=== PATIENT | female | born 1995 | race Caucasian/White ===

== ENCOUNTER 2021-03-18 06:19 | Emergency (ER) | payer OTHER ==
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
== END 2021-03-18 07:20 | disposition left against medical advice (07) ==
LOC: EC 06:19
DX: S00.12XA Contusion of left eyelid and periocular area, initial encounter (principal); F17.200 Nicotine dependence, unspecified, uncomplicated; W10.9XXA Fall (on) (from) unspecified stairs and steps, initial encounter
CPT/HCPCS: 70450; 70480; 72125; 99284

== ENCOUNTER 2022-07-17 16:30 | Emergency (ER) | payer OTHER ==
[2022-07-17] MEDS ORDERED: LIDOCAINE 5% PATCH TOPICAL STA (17:15)
[2022-07-17] MEDS ORDERED: Acetaminophen-Codeine 300-30mg TAB PO STA (17:16)
[2022-07-17] MEDS ORDERED: HYDROcodone/APAP 5-325MG 1 EACH TAB PO STA (17:17)
--- NOTE | 2022-07-17 17:19 | ED ---
Back Pain HPI - General Chief Complaint: Back Pain/Injury Stated Complaint: BACK INJURY-FALL Time Seen by Provider: 07/17/22 16:53 Source: patient Limitations: no limitations - History of Present Illness Initial Comments: Patient is a 27-year-old female who presents to the emergency department for back pain.Patient slipped and fell in the bathroom on Thursday. She did not hit her head or lose consciousness. Patient did hit the left side of her middle back on the countertop during the fall. States her pain was tolerable until yesterday when she twisted her back the wrong way and heard a pop with increased pain. Pain worse with twisting of her back. She went to [facility] and apparently had normal x-rays. She was discharged with Motrin and lidocaine patches. She was unable to brick picker her lidocaine patches due to his primary insurance states the Motrin is barely helping. She denies any pain, numbness, tingling in the legs. Denies saddle anesthesia, leg weakness. Denies burning with urination, blood in the urine, abdominal pain, nausea, vomiting. No chest pain or shortness of breath. - Related Data Allergies Allergy/AdvReac Type Severity Reaction Status Date / Time No Known Allergies Allergy Verified 07/17/22 16:46 Review of Systems ROS Statement: Those systems with pertinent positive or pertinent negative responses have been documented in the HPI. ROS Other: All systems not noted in ROS Statement are negative. Past Medical History Past Medical History: No Reported History History of Any Multi-Drug Resistant Organisms: None Reported Past Surgical History: No Surgical Hx Reported Past Psychological History: Anxiety, Depression Smoking Status: Current every day smoker Past Alcohol Use History: Occasional Past Drug Use History: None Reported General Exam Limitations: no limitations General appearance: alert, in no apparent distress Head exam: Present: atraumatic, normocephalic, normal inspection Eye exam: Present: normal appearance, PERRL, EOMI. Absent: scleral icterus, conjunctival injection, periorbital swelling Respiratory exam: Present: normal lung sounds bilaterally. Absent: respiratory distress, wheezes, rales, rhonchi, stridor Cardiovascular Exam: Present: regular rate, normal rhythm, normal heart sounds. Absent: systolic murmur, diastolic murmur, rubs, gallop, clicks GI/Abdominal exam: Present: soft, normal bowel sounds. Absent: distended, tenderness, guarding, rebound, rigid Back exam: Present: normal inspection, full ROM, paraspinal tenderness (left thoracic). Absent: CVA tenderness (R), CVA tenderness (L), vertebral tenderness Neurological exam: Present: alert, oriented X3, CN II-XII intact Psychiatric exam: Present: normal affect, normal mood Skin exam: Present: warm, dry, intact, normal color. Absent: rash Course Vital Signs 07/17/22 07/17/22 16:46 17:59 Temperature 98.7 F 98.2 F Pulse Rate 99 82 Respiratory 18 16 Rate Blood Pressure 135/89 132/76 O2 Sat by Pulse 99 99 Oximetry Medical Decision Making - Medical Decision Making Was pt. sent in by a medical professional or institution (, PA, MAINTENANCE TEAM LEADER, urgent care, hospital, or longterm...) When possible be specific @ -No Did you speak to anyone other than the patient for history (EMS, parent, family, police, friend...)? What history was obtained from this source @ -No Did you review nursing and triage notes (agree or disagree)? Why? @ -I reviewed and agree with nursing and triage notes Were old charts reviewed (outside hosp., previous admission, EMS record, old EKG, old radiological studies, urgent care reports/EKG's, longterm records)? Report findings @ -No old charts were reviewed Differential Diagnosis (chest pain, altered mental status, abdominal pain women, abdominal pain men, vaginal bleeding, weakness, fever, dyspnea, syncope, headache, dizziness, GI bleed, back pain, seizure, CVA, palpatations, mental health)? @ Muscle strain, contusion, soft tissue injury, fracture, cauda equina. This list is not meant to be all-inclusive EKG interpreted by me (3pts min.). @ -As above X-rays interpreted by me (1pt min.). @ -None done CT interpreted by me (1pt min.). @ -None done U/S interpreted by me (1pt. min.). @ -None done What testing was considered but not performed or refused? (CT, X-rays, U/S, labs)? Why? @ -No What meds were considered but not given or refused? Why? @ -None Did you discuss the management of the patient with other professionals (professionals i.e. , PA, MAINTENANCE TEAM LEADER, lab, RT, psych nurse, social work instructor, lens examiner, teacher, commissioned security officer, geriatric case manager)? Give summary @ -No Was smoking cessation discussed for >3mins.? @ -No Was critical care preformed (if so, how long)? @ -No Were there social determinants of health that impacted care today? How? (Homelessness, low income, unemployed, alcoholism, drug addiction, transportation, low edu. Level, literacy, decrease access to med. care, senior living, rehab)? @ -No Was there de-escalation of care discussed even if they declined (Discuss DNR or withdrawal of care, Hospice)? DNR status @ -No What co-morbidities impacted this encounter? (DM, HTN, Smoking, COPD, CAD, Cancer, CVA, ARF, Chemo, Hep., AIDS, mental health diagnosis, sleep apnea, morbid obesity)? @ -None Was patient admitted / discharged? Hospital course, mention meds given and route, prescriptions, significant lab abnormalities, going to OR and other pertinent info. @ -Patient presenting with back pain. Patient has mild tenderness of the left thoracic paravertebral vertebral region. There is no midline tenderness. Clinical presentation consistent with musculoskeletal injury. No neurological deficit or weakness. No symptoms or signs of cauda equina. We discussed symptomatic management at home.. Patient will be discharged with pain control and import specialist referral. Undiagnosed new problem with uncertain prognosis? @ -No Drug Therapy requiring intensive monitoring for toxicity (Heparin, Nitro, Insulin, Cardizem)? @ -No Were any procedures done? @ -No Diagnosis/symptom? @ -back stain Acute, or Chronic, or Acute on Chronic? @ -acute Uncomplicated (without systemic symptoms) or Complicated (systemic symptoms)? @ -uncomplicated Side effects of treatment? @ -[No] Exacerbation, Progression, or Severe Exacerbation? @ -[No] Poses a threat to life or bodily function? How? (Chest pain, [place], [place], pneumonia, PE, COPD, DKA, ARF, appy, cholecystitis, CVA, Diverticulitis, Homicidal, Suicidal, threat to staff... and all critical care pts) @ -[No] Dr. Cohen is my attending Disposition Clinical Impression: Back strain Disposition: HOME SELF-CARE Condition: Good Instructions (If sedation given, give patient instructions): Acute Low Back Pain (ED) Additional Instructions: Take medication as directed. Take Tylenol and save Tylenol 3 for severe pain. Do not take Tylenol 3 and Tylenol together. Apply warm compress to the injury. Follow-up with import specialist in 1-2 days. Return to the emergency department if you experience new, concerning, or worsening symptoms. Is patient prescribed a controlled substance at d/c from ED?: No Referrals: None,Stated [Primary Care Provider] - 1-2 days Maximo Aceves MD [STAFF PHYSICIAN] - 1-2 days
[2022-07-17] MEDS ORDERED: ACET/COD 300 MG/30 MG STARTER PACK 6 TAB BTL PO STA (17:28)
[2022-07-17 18:02] VITALS: BP 132/76; PULSE 82; RESP 16; TEMP 98.2
== END 2022-07-17 18:02 | disposition home or self-care (01) ==
LOC: EC 16:30
DX: S39.012A Strain of muscle, fascia and tendon of lower back, initial encounter (principal); F17.200 Nicotine dependence, unspecified, uncomplicated; Z86.59 Personal history of other mental and behavioral disorders; W01.0XXA Fall on same level from slipping, tripping and stumbling without subsequent striking against object, initial encounter; Y92.002 Bathroom of unspecified non-institutional (private) residence as the place of occurrence of the external cause
CPT/HCPCS: 99283

== ENCOUNTER 2023-01-19 07:35 | Observation (INO) | payer OTHER ==
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
--- NOTE | 2023-01-19 08:46 | XR ---
EXAMINATION TYPE: XR ribs LT w pa chest xray DATE OF EXAM: 01/19/2023 COMPARISON: NONE HISTORY: Pain TECHNIQUE: Frontal view of the chest and 2 views of the left ribs are submitted FINDINGS: Lung is clear. 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 There is a deformity of the left fifth, sixth and seventh ribs anterolaterally compatible with mildly displaced fractures. Small left apical pneumothorax measuring approximately 10-15%. IMPRESSION: 1. Small left apical pneumothorax measuring 10-15%. 2. Mildly displaced fractures anterolateral left fifth, sixth and seventh ribs.
[2023-01-19 09:12] LABS: Basophils % (A) 1 %; Eosinophils # (A) 0.1 k/uL (0-0.7); Eosinophils % (A) 2 %; HCT 37.9 % (34.0-46.0); HGB 12.5 gm/dL (11.4-16.0); Lymphocytes # (A) 1.5 k/uL (1.0-4.8); Lymphocytes % (A) 28 %; MCH 32.8 pg (25.0-35.0); MCHC 33.1 g/dL (31.0-37.0); Mean Platelet Volume 7.3; Monocytes # (A) 0.5 k/uL (0-1.0); Monocytes % (A) 9 %; Neutrophils # (A) 3.1 k/uL (1.3-7.7); Neutrophils % (A) 58 %; Platelet Count 311 k/uL (150-450); RBC 3.82 m/uL (3.80-5.40); RDW 12.9 % (11.5-15.5); WBC 5.3 k/uL (3.8-10.6)
[2023-01-19 09:23] LABS: ALT 25 U/L (4-34); AST 25 U/L (14-36); African American GFR (CKD) >90 (>60 ml/min/1.73 sqM); Alkaline Phosphatase 104 U/L (38-126); Anion Gap 7 mmol/L; Blood Urea Nitrogen 14 mg/dL (7-17); Calcium 9.4 mg/dL (8.4-10.2); Carbon Dioxide 30 mmol/L (22-30); Chloride 104 mmol/L (98-107); Glucose 74 mg/dL (74-99); Non-African American GFR(CKD) >90 (>60 ml/min/1.73 sqM); Potassium 3.9 mmol/L (3.5-5.1); Sodium 141 mmol/L (137-145); Total Bilirubin 0.7 mg/dL (0.2-1.3)
[2023-01-19 09:34] LABS: INR 0.9 (<1.2); Partial Thromboplastin Time 22.2 sec (22.0-30.0); Prothrombin Time 10.2 sec (10.0-12.5)
[2023-01-19] MEDS ORDERED: NALOXONE 0.4 MG/ML 1 ML VIAL IV PRN (09:41)
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
--- NOTE | 2023-01-19 12:11 | XR ---
EXAM TYPE: LUMBAR SPINE X RAY SERIES COMPARISON: NONE HISTORY: Pain TECHNIQUE: 4 views are submitted. FINDINGS: Alignment is anatomic. The pedicles are intact. The transverse processes are intact. There is no s pondylolisthesis. Vertebral body height and disc interspace maintained. IMPRESSION: 1. No acute process.
[2023-01-19] MEDS: KETOROLAC 15 MG/ML 1 ML VIAL IVP PRN ×2 (12:24→18:30)
[2023-01-19] MEDS: ACETAMINOPHEN TAB 325 MG TAB PO PRN ×2 (15:08→20:50)
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
[2023-01-19] MEDS: FAMOTIDINE 20 MG TAB PO SCH (20:47)
[2023-01-19] MEDS: HEPARIN SODIUM,PORCINE 5,000 UNIT/ML 1 ML VIAL SQ SCH (20:50)
[2023-01-20] MEDS: KETOROLAC 15 MG/ML 1 ML VIAL IVP PRN ×2 (00:49→08:39)
[2023-01-20] MEDS: FAMOTIDINE 20 MG TAB PO SCH (08:42)
[2023-01-20] MEDS: HEPARIN SODIUM,PORCINE 5,000 UNIT/ML 1 ML VIAL SQ SCH (08:42)
--- NOTE | 2023-01-20 08:54 | XR ---
EXAMINATION TYPE: XR chest 2V DATE OF EXAM: 01/20/2023 COMPARISON: 01/19/2023 TECHNIQUE: PA and lateral views submitted. HISTORY: Pneumothorax FINDINGS: Left lower lobe subsegmental consolidation now seen. There is a stable approximate 10-15% left apical pneumothorax. Previously noted rib fractures seen. Right lung clear. Heart size normal. No deviation of the mediastinum. IMPRESSION: 1. Stable approximately 15% left sided pneumothorax. 2. New left lower lobe atelectasis or infiltrate.
[2023-01-20] MEDS: ACETAMINOPHEN TAB 325 MG TAB PO PRN (11:06)
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
[2023-01-20 13:09] VITALS: BP 137/90; PULSE 66; RESP 16; TEMP 97.7
== END 2023-01-20 13:19 | disposition home or self-care (01) ==
LOC: EC 07:35 → INTOOBSV 09:41 → 3SCARD 09:41 → UNDODISIN 01-20 13:19
PROVIDERS: ADMIT Surgery; ATTEND Surgery
DX: S27.0XXA Traumatic pneumothorax, initial encounter (principal); S22.42XA Multiple fractures of ribs, left side, initial encounter for closed fracture; Y04.2XXA Assault by strike against or bumped into by another person, initial encounter; M54.50 Low back pain, unspecified; F41.9 Anxiety disorder, unspecified; F32.A Depression, unspecified; F43.10 Post-traumatic stress disorder, unspecified; F10.90 Alcohol use, unspecified, uncomplicated; F17.210 Nicotine dependence, cigarettes, uncomplicated
CPT/HCPCS: 96376 ×2; 96372; 96374; 99285; 36415; 80053; 85025; 85610; 85730; 71101; 72100; 71046; G0378 ×2; J1644; J1885 ×2

== ENCOUNTER 2023-01-21 06:48 | Emergency (ER) | payer OTHER ==
[2023-01-21 07:00] VITALS: TEMP 97
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
[2023-01-21 08:37] VITALS: BP 124/75; PULSE 84; RESP 16
[2023-01-21 08:46] LABS: Amphetamine Screen,Urine Not Detected (NotDetected); Barbiturate Screen,Urine Not Detected (NotDetected); Benzodiazepines Screen,Urine Not Detected (NotDetected); Cocaine Screen,Urine Detected (NotDetected); Methadone Screen, Urine Not Detected (NotDetected); Opiate Screen,Urine Not Detected (NotDetected); Oxycodone Screen, Urine Not Detected (NotDetected); Phencyclidine Screen,Urine Not Detected (NotDetected); Tricyclic Antidepressant,Urine Not Detected (NotDetected); Urn Cannabinoid Scrn Detected (NotDetected)
[2023-01-21] MEDS ORDERED: ONDANSETRON 4 MG ODT STARTER PACK 2 TAB BTL PO STA (09:17)
== END 2023-01-21 09:21 | disposition home or self-care (01) ==
LOC: EC 06:48
DX: S22.42XA Multiple fractures of ribs, left side, initial encounter for closed fracture (principal); S27.0XXA Traumatic pneumothorax, initial encounter; T40.601A Poisoning by unspecified narcotics, accidental (unintentional), initial encounter; R00.0 Tachycardia, unspecified; F10.129 Alcohol abuse with intoxication, unspecified; F12.20 Cannabis dependence, uncomplicated; F14.10 Cocaine abuse, uncomplicated; F17.200 Nicotine dependence, unspecified, uncomplicated; Z86.59 Personal history of other mental and behavioral disorders; Y04.8XXA Assault by other bodily force, initial encounter; Y90.7 Blood alcohol level of 200-239 mg/100 ml
CPT/HCPCS: 99285; 36415; 93005; 81025; 80306; 71045; G0480; S0119; 80320

== ENCOUNTER 2023-05-22 21:52 | Emergency (ER) | payer OTHER ==
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
[2023-05-22 22:24] LABS: Basophils # (A) 0.1 k/uL (0-0.2); Basophils % (A) 1 %; Eosinophils # (A) 0.2 k/uL (0-0.7); Eosinophils % (A) 1 %; HCT 38.8 % (34.0-46.0); HGB 12.9 gm/dL (11.4-16.0); Lymphocytes # (A) 3.5 k/uL (1.0-4.8); Lymphocytes % (A) 31 %; MCH 32.6 pg (25.0-35.0); MCHC 33.3 g/dL (31.0-37.0); MCV 97.9 fL (80.0-100.0); Mean Platelet Volume 6.9; Monocytes # (A) 0.4 k/uL (0-1.0); Monocytes % (A) 3 %; Neutrophils # (A) 6.9 k/uL (1.3-7.7); Neutrophils % (A) 61 %; Platelet Count 325 k/uL (150-450); RBC 3.97 m/uL (3.80-5.40); RDW 12.1 % (11.5-15.5); WBC 11.4 k/uL (3.8-10.6)
[2023-05-22 22:42] LABS: INR 0.9 (<1.2); Prothrombin Time 10.1 sec (10.0-12.5)
[2023-05-22 22:43] LABS: ALT 13 U/L (4-34); AST 26 U/L (14-36); African American GFR (CKD) >90 (>60 ml/min/1.73 sqM); Albumin 4.8 g/dL (3.5-5.0); Alkaline Phosphatase 178 U/L (38-126); Anion Gap 11 mmol/L; Blood Urea Nitrogen 15 mg/dL (7-17); Calcium 9.3 mg/dL (8.4-10.2); Carbon Dioxide 24 mmol/L (22-30); Chloride 108 mmol/L (98-107); Glucose 87 mg/dL (74-99); Non-African American GFR(CKD) >90 (>60 ml/min/1.73 sqM); Potassium 3.6 mmol/L (3.5-5.1); Sodium 143 mmol/L (137-145); Total Bilirubin 0.7 mg/dL (0.2-1.3); Total Protein 7.8 g/dL (6.3-8.2)
[2023-05-22 22:46] VITALS: BP 142/96; PULSE 102; RESP 20
[2023-05-22 22:47] LABS: Amphetamine Screen,Urine Not Detected (NotDetected); Barbiturate Screen,Urine Not Detected (NotDetected); Benzodiazepines Screen,Urine Not Detected (NotDetected); Cocaine Screen,Urine Not Detected (NotDetected); Methadone Screen, Urine Not Detected (NotDetected); Opiate Screen,Urine Not Detected (NotDetected); Oxycodone Screen, Urine Not Detected (NotDetected); Phencyclidine Screen,Urine Not Detected (NotDetected); Tricyclic Antidepressant,Urine Not Detected (NotDetected); Urn Cannabinoid Scrn Detected (NotDetected)
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
[2023-05-22 23:17] LABS: Alcohol 298 mg/dL
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
[2023-05-22] MEDS: DIPH,PERTUS(ACELL)TETVAC-LF 0.5 ML VIAL IM ONE (23:46)
[2023-05-22] MEDS: LIDOCAINE 1% INJ 10MG/ML (20 ML MDV) SQ ONE (23:48)
== END 2023-05-23 01:19 | disposition home or self-care (01) ==
LOC: EC 21:52
DX: S01.01XA Laceration without foreign body of scalp, initial encounter (principal); S06.0XAA Concussion with loss of consciousness status unknown, initial encounter; F10.129 Alcohol abuse with intoxication, unspecified; F12.90 Cannabis use, unspecified, uncomplicated; F17.200 Nicotine dependence, unspecified, uncomplicated; Z86.59 Personal history of other mental and behavioral disorders; Z23 Encounter for immunization; V89.2XXA Person injured in unspecified motor-vehicle accident, traffic, initial encounter; Y90.8 Blood alcohol level of 240 mg/100 ml or more; Y92.410 Unspecified street and highway as the place of occurrence of the external cause
CPT/HCPCS: 36415; 86900; 86901; 80053; 84484; 85025; 85610; 85730; 86850; 81025; 80306; 80320; 72170; 71045; 72125; 70450; 71260; 74177; 90715; 99285; 90471; 12002; Q9967

== ENCOUNTER 2023-10-01 20:37 | Emergency (ER) | payer OTHER ==
[2023-10-01 20:40] VITALS: TEMP 97.9
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
[2023-10-01] MEDS: IBUPROFEN 600 MG TAB PO STA (22:19)
[2023-10-01 22:27] VITALS: BP 138/91; PULSE 85; RESP 18
== END 2023-10-01 22:27 | disposition home or self-care (01) ==
LOC: EC 20:37
DX: S00.83XA Contusion of other part of head, initial encounter (principal); F17.200 Nicotine dependence, unspecified, uncomplicated; F12.90 Cannabis use, unspecified, uncomplicated; Y09 Assault by unspecified means
CPT/HCPCS: 70110; 99283

== ENCOUNTER 2024-02-19 08:41 | Emergency (ER) | payer OTHER ==
[2024-02-19 08:56] VITALS: RESP 18
--- NOTE | 2024-02-19 09:13 | ED ---
General Adult HPI - General Chief complaint: Vaginal Bleeding Stated complaint: Vaginal bleeding, Time Seen by Provider: 02/19/24 09:00 Source: patient, RN notes reviewed Mode of arrival: ambulatory Limitations: no limitations - History of Present Illness Initial comments: Patient is a 29-year-old female present to the emergency department with concerns for vaginal bleeding. Onset of symptoms was 2 days ago. Patient has had only mild spotting. Patient has had some cramping, at worst has been similar to menses. Patient had positive home test done a week ago. Last menstrual cycle ended 01/06. Currently patient is symptom-free. No fever. No nausea or vomiting. Patient denies any significant vaginal discharge. Patient is G2, P1. - Related Data Previous Rx's Medication Instructions Recorded Ibuprofen [Motrin] 600 mg PO Q8HR PRN #24 tab 01/19/23 Acetaminophen Tab [Tylenol Tab] 650 mg PO Q4H PRN #30 tablet 01/20/23 Ketorolac [Toradol] 10 mg PO Q8HR #15 tab 10/01/23 Allergies Allergy/AdvReac Type Severity Reaction Status Date / Time No Known Allergies Allergy Verified 02/19/24 08:53 Review of Systems ROS Statement: Those systems with pertinent positive or pertinent negative responses have been documented in the HPI. ROS Other: All systems not noted in ROS Statement are negative. Constitutional: Denies: fever Eyes: Denies: eye pain ENT: Denies: throat pain Respiratory: Denies: cough Cardiovascular: Denies: chest pain Gastrointestinal: Reports: as per HPI Genitourinary: Reports: as per HPI. Denies: urgency, dysuria, frequency, hematuria Musculoskeletal: Denies: back pain Past Medical History Past Medical History: No Reported History History of Any Multi-Drug Resistant Organisms: None Reported Past Surgical History: No Surgical Hx Reported Past Psychological History: Anxiety, Depression, PTSD Smoking Status: Current every day smoker Past Alcohol Use History: Occasional Past Drug Use History: Marijuana - Past Family History Father Family Medical History: Myocardial Infarction ([place]) Additional Family Medical History / Comment(s): Father from a myocardial infarction in his late 30s or early 40s General Exam Limitations: no limitations General appearance: alert, in no apparent distress Head exam: Present: normocephalic Eye exam: Present: normal appearance Neck exam: Present: normal inspection Respiratory exam: Present: normal lung sounds bilaterally Cardiovascular Exam: Present: regular rate, normal rhythm GI/Abdominal exam: Present: soft. Absent: distended, tenderness, guarding, rebound, rigid, pulsatile mass Extremities exam: Present: normal inspection Neurological exam: Present: alert Psychiatric exam: Present: normal affect, normal mood Skin exam: Present: normal color Course Vital Signs 02/19/24 08:53 Temperature 99 F Pulse Rate 97 Respiratory 18 Rate Blood Pressure 117/71 O2 Sat by Pulse 100 Oximetry Medical Decision Making - Medical Decision Making Discussion had with patient regarding pelvic exam however patient refuses Was pt. sent in by a medical professional or institution (, PA, JEWEL HOLE FINISH OPENER, urgent c are, hospital, or alf...) When possible be specific @ -No Did you speak to anyone other than the patient for history (EMS, parent, family, police, friend...)? What history was obtained from this source @ -No Did you review nursing and triage notes (agree or disagree)? Why? @ -I reviewed and agree with nursing and triage notes Were old charts reviewed (outside hosp., previous admission, EMS record, old EKG, old radiological studies, urgent care reports/EKG's, alf records)? Report findings @ -No old charts were reviewed Differential Diagnosis (chest pain, altered mental status, abdominal pain women, abdominal pain men, vaginal bleeding, weakness, fever, dyspnea, syncope, headache, dizziness, GI bleed, back pain, seizure, CVA, palpatations, mental health, musculoskeletal)? @ -Differential Vaginal Bleeding: Spontaneous , threatened , molar , ectopic , bloody show, incompetent cervix, abruptioplacenta, placenta previa, uterine ru pture, dysfunctional uterine bleeding, hemorrhage, uterine fibroids, this is not meant to be an all-inclusive list. EKG interpreted by me (3pts min.). @ -As above X-rays interpreted by me (1pt min.). @ -None done CT interpreted by me (1pt min.). @ -None done U/S interpreted by me (1pt. min.). @ -Pelvic ultrasound shows anechoic cystic structure in the uterus What testing was considered but not performed or refused? (CT, X-rays, U/S, labs)? Why? @ -Repeat hCG will be ordered What meds were considered but not given or refused? Why? @ -None Did you discuss the management of the patient with other professionals (professionals i.e. , PA, JEWEL HOLE FINISH OPENER, lab, RT, psych nurse, public health social worker, immigration lawyer, teacher, dog control officer, caser shoe parts)? Give summary @ -No Was smoking cessation discussed for >3mins.? @ -No Was critical care preformed (if so, how long)? @ -No Were there social determinants of health that impacted care today? How? (Homelessness, low income, unemployed, alcoholism, drug addiction, transportation, low edu. Level, literacy, decrease access to med. care, skilled nursing, rehab)? @ -No Was there de-escalation of care discussed even if they declined (Discuss DNR or withdrawal of care, Hospice)? DNR status @ -No What co-morbidities impacted this encounter? (DM, HTN, Smoking, COPD, CAD, Cancer, CVA, ARF, Chemo, Hep., AIDS, mental health diagnosis, sleep apnea, morbid obesity)? @ -None Was patient admitted / discharged? Hospital course, mention meds given and route, prescriptions, significant lab abnormalities, going to OR and other pertinent info. @ -Patient presents with spotting with concerns for . Ultrasound shows cystic structure inside the uterus. Patient is made aware cannot rule out ectopic and will need to close follow-up with [facility] as well as repeat hCG in 48 hours. Patient does demonstrate understanding. Patient is to return if increased bleeding, pain or worsening symptoms. Patient has Rh- and will need RhoGAM Undiagnosed new problem with uncertain prognosis? @ -No Drug Therapy requiring intensive monitoring for toxicity (Heparin, Nitro, Insulin, Cardizem)? @ -No Were any procedures done? @ -No Diagnosis/symptom? @ -Threatened miscarriage Acute, or Chronic, or Acute on Chronic? @ -Acute Uncomplicated (without systemic symptoms) or Complicated (systemic symptoms)? @ -Default Side effects of treatment? @ -No Exacerbation, Progression, or Severe Exacerbation? @ -No Poses a threat to life or bodily function? How? (Chest pain, [place], [place], pneumonia, PE, COPD, DKA, ARF, appy, cholecystitis, CVA, Diverticulitis, Homicidal, Suicidal, threat to staff... and all critical care pts) @ -No - Lab Data Result diagrams: 02/19/24 09:14 02/19/24 09:14 Lab Results 02/19/24 02/19/24 02/19/24 Range/Units 09:14 09:14 09:14 WBC 10.0 (3.8-10.6) k/uL RBC 3.59 L (3.80-5.40) m/uL Hgb 11.6 (11.4-16.0) gm/dL Hct 35.3 (34.0-46.0) % MCV 98.1 (80.0-100.0) fL MCH 32.2 (25.0-35.0) pg MCHC 32.8 (31.0-37.0) g/dL RDW 11.7 (11.5-15.5) % Plt Count 287 (150-450) k/uL MPV 6.8 Neutrophils % 71 % Lymphocytes % 20 % Monocytes % 5 % Eosinophils % 1 % Basophils % 0 % Neutrophils # 7.1 (1.3-7.7) k/uL Lymphocytes # 2.0 (1.0-4.8) k/uL Monocytes # 0.5 (0-1.0) k/uL Eosinophils # 0.1 (0-0.7) k/uL Basophils # 0.0 (0-0.2) k/uL PT 10.0 (10.0-12.5) sec INR 0.9 (<1.2) APTT 24.0 (22.0-30.0) sec Sodium 135 L (137-145) mmol/L Potassium 4.2 (3.5-5.1) mmol/L Chloride 102 (98-107) mmol/L Carbon Dioxide 28 (22-30) mmol/L Anion Gap 5 mmol/L BUN 14 (7-17) mg/dL Creatinine 0.79 (0.52-1.04) mg/dL Est GFR (CKD-EPI)AfAm >90 (>60 ml/min/1.73 sqM) Est GFR (CKD-EPI)NonAf >90 (>60 ml/min/1.73 sqM) Glucose 97 (74-99) mg/dL Calcium 9.7 (8.4-10.2) mg/dL Total Bilirubin 0.4 (0.2-1.3) mg/dL AST 17 (14-36) U/L ALT 13 (4-34) U/L Alkaline Phosphatase 172 H (38-126) U/L Total Protein 7.2 (6.3-8.2) g/dL Albumin 4.4 (3.5-5.0) g/dL HCG, Quant 67082.1 mIU/mL Urine Color Urine Appearance (Clear) Urine pH (5.0-8.0) Ur Specific [place] (1.001-1.035) Urine Protein (Negative) Urine Glucose (UA) (Negative) Urine Ketones (Negative) Urine Blood (Negative) Urine Nitrite (Negative) Urine Bilirubin (Negative) Urine Urobilinogen (<2.0) mg/dL Ur Leukocyte Esterase (Negative) Urine RBC (0-5) /hpf Urine WBC (0-5) /hpf Ur Squamous Epith Cells (0-4) /hpf Urine Bacteria (None) /hpf Urine Mucus (None) /hpf Blood Type Blood Type Recheck Bld Type Recheck Status 02/19/24 02/19/24 Range/Units 09:20 09:40 WBC (3.8-10.6) k/uL RBC (3.80-5.40) m/uL Hgb (11.4-16.0) gm/dL Hct (34.0-46.0) % MCV (80.0-100.0) fL MCH (25.0-35.0) pg MCHC (31.0-37.0) g/dL RDW (11.5-15.5) % Plt Count (150-450) k/uL MPV Neutrophils % % Lymphocytes % % Monocytes % % Eosinophils % % Basophils % % Neutrophils # (1.3-7.7) k/uL Lymphocytes # (1.0-4.8) k/uL Monocytes # (0-1.0) k/uL Eosinophils # (0-0.7) k/uL Basophils # (0-0.2) k/uL PT (10.0-12.5) sec INR (<1.2) APTT (22.0-30.0) sec Sodium (137-145) mmol/L Potassium (3.5-5.1) mmol/L Chloride (98-107) mmol/L Carbon Dioxide (22-30) mmol/L Anion Gap mmol/L BUN (7-17) mg/dL Creatinine (0.52-1.04) mg/dL Est GFR (CKD-EPI)AfAm (>60 ml/min/1.73 sqM) Est GFR (CKD-EPI)NonAf (>60 ml/min/1.73 sqM) Glucose (74-99) mg/dL Calcium (8.4-10.2) mg/dL Total Bilirubin (0.2-1.3) mg/dL AST (14-36) U/L ALT (4-34) U/L Alkaline Phosphatase (38-126) U/L Total Protein (6.3-8.2) g/dL Albumin (3.5-5.0) g/dL HCG, Quant mIU/mL Urine Color Colorless Urine Appearance Clear (Clear) Urine pH 6.5 (5.0-8.0) Ur Specific [place] 1.020 (1.001-1.035) Urine Protein Negative (Negative) Urine Glucose (UA) Negative (Negative) Urine Ketones Negative (Negative) Urine Blood Negative (Negative) Urine Nitrite Negative (Negative) Urine Bilirubin Negative (Negative) Urine Urobilinogen <2.0 (<2.0) mg/dL Ur Leukocyte Esterase Small H (Negative) Urine RBC 1 (0-5) /hpf Urine WBC 3 (0-5) /hpf Ur Squamous Epith Cells 8 H (0-4) /hpf Urine Bacteria Rare H (None) /hpf Urine Mucus Rare H (None) /hpf Blood Type O Negative Blood Type Recheck O Neg Bld Type Recheck Status No Disposition Clinical Impression: Threatened miscarriage Disposition: HOME SELF-CARE Condition: Stable Instructions (If sedation given, give patient instructions): Threatened Miscarriage (ED) Additional Instructions: Tubal/ectopic has not been completely ruled out. Please do follow-up with [facility] in the next 2 days for recheck. Repeat beta-hCG blood draw in 2 days, prescription provided. Return for increased bleeding, increased pain, passing out, shortness of breath, worsening symptoms or any other concern. Is patient prescribed a controlled substance at d/c from ED?: No Referrals: None,Stated [Primary Care Provider] - 1-2 days Ratna Avilez DO [Doctor of Osteopathic Medicine] - 1-2 days Time of Disposition: 10:53
[2024-02-19 09:39] LABS: Basophils % (A) 0 %; Eosinophils # (A) 0.1 k/uL (0-0.7); Eosinophils % (A) 1 %; HCT 35.3 % (34.0-46.0); HGB 11.6 gm/dL (11.4-16.0); Lymphocytes % (A) 20 %; MCH 32.2 pg (25.0-35.0); MCHC 32.8 g/dL (31.0-37.0); MCV 98.1 fL (80.0-100.0); Mean Platelet Volume 6.8; Monocytes # (A) 0.5 k/uL (0-1.0); Monocytes % (A) 5 %; Neutrophils # (A) 7.1 k/uL (1.3-7.7); Neutrophils % (A) 71 %; Platelet Count 287 k/uL (150-450); RBC 3.59 m/uL (3.80-5.40); RDW 11.7 % (11.5-15.5)
[2024-02-19 09:48] LABS: INR 0.9 (<1.2)
[2024-02-19 09:52] LABS: Appearance,Urine Clear (Clear); Bacteria,Urine Rare /hpf; Bilirubin,Urine Negative (Negative); Blood,Urine Negative (Negative); Color,Urine Colorless; Glucose,Urine (UA) Negative (Negative); Ketones,Urine Negative (Negative); Leukocyte Esterase,Urine Small (Negative); Mucus,Urine Rare /hpf; Nitrite,Urine Negative (Negative); PH, Urine 6.5 (5.0-8.0); Protein,Urine Negative (Negative); RBC,Urine 1 /hpf (0-5); Squamous Epithelial Cell,Urine 8 /hpf (0-4); Urobilinogen,Urine <2.0 mg/dL (<2.0); WBC,Urine 3 /hpf (0-5)
[2024-02-19 09:53] LABS: ALT 13 U/L (4-34); AST 17 U/L (14-36); African American GFR (CKD) >90 (>60 ml/min/1.73 sqM); Albumin 4.4 g/dL (3.5-5.0); Alkaline Phosphatase 172 U/L (38-126); Anion Gap 5 mmol/L; Blood Urea Nitrogen 14 mg/dL (7-17); Calcium 9.7 mg/dL (8.4-10.2); Carbon Dioxide 28 mmol/L (22-30); Chloride 102 mmol/L (98-107); Glucose 97 mg/dL (74-99); Non-African American GFR(CKD) >90 (>60 ml/min/1.73 sqM); Potassium 4.2 mmol/L (3.5-5.1); Sodium 135 mmol/L (137-145); Total Bilirubin 0.4 mg/dL (0.2-1.3); Total Protein 7.2 g/dL (6.3-8.2)
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
[2024-02-19 10:37] LABS: HCG,Quantitative Serum 13791.1 mIU/mL
[2024-02-19] MEDS: Rhogam IMMUNE GLOBULIN 1,500 UNIT/1 ML IM ONE (11:36)
[2024-02-19 11:40] VITALS: BP 115/76; PULSE 91; TEMP 98.7
== END 2024-02-19 11:40 | disposition home or self-care (01) ==
LOC: EC 08:41
DX: O20.0 Threatened abortion (principal); O99.331 Smoking (tobacco) complicating pregnancy, first trimester; F17.200 Nicotine dependence, unspecified, uncomplicated; Z34.01 Encounter for supervision of normal first pregnancy, first trimester
CPT/HCPCS: 99284 ×2; 96372 ×2; 36415; 86900; 86901; 80053; 85025; 85610; 85730; 86850; 81001; 84702; 76801; J2790

== ENCOUNTER 2024-04-17 22:09 | Emergency (ER) | payer OTHER ==
[2024-04-17 22:15] VITALS: RESP 16; TEMP 98.2
--- NOTE | 2024-04-17 22:38 | ED ---
General Adult HPI - General Chief complaint: Nausea/Vomiting/Diarrhea Stated complaint: NVD 15 weeks Time Seen by Provider: 04/17/24 22:16 Source: patient Mode of arrival: ambulatory Limitations: no limitations - History of Present Illness Initial comments: Patient is a 29-year-old female, currently 15 weeks presenting today for dizziness, nausea, vomiting and lower abdominal cramping. Patient states symptoms started suddenly about 2 hours prior to arrival. She has had a few episodes of nonbloody nonbilious emesis. Dizziness is described as lightheadedness and worsened upon standing and position changes. She denies chest pain shortness of breath or cough. Denies fevers or chills. No medications prior to arrival. Denies diarrhea, melena, hematochezia. Endorses intermittent constipation. Denies dysuria, hematuria or urinary frequency. Denies history of kidney stones, no surgical history. Vaginal bleeding, discharge or fluid. - Related Data Previous Rx's Medication Instructions Recorded Ibuprofen [Motrin] 600 mg PO Q8HR PRN #24 tab 01/19/23 Acetaminophen Tab [Tylenol Tab] 650 mg PO Q4H PRN #30 tablet 01/20/23 Ketorolac [Toradol] 10 mg PO Q8HR #15 tab 10/01/23 Allergies Allergy/AdvReac Type Severity Reaction Status Date / Time No Known Allergies Allergy Verified 04/17/24 22:12 Review of Systems ROS Statement: Those systems with pertinent positive or pertinent negative responses have been documented in the HPI. ROS Other: All systems not noted in ROS Statement are negative. Past Medical History Past Medical History: No Reported History History of Any Multi-Drug Resistant Organisms: None Reported Past Surgical History: No Surgical Hx Reported Past Psychological History: Anxiety, Depression, PTSD Smoking Status: Vaper Past Alcohol Use History: None Reported Past Drug Use History: None Reported - Past Family History Father Family Medical History: Myocardial Infarction ([place]) Additional Family Medical History / Comment(s): Father from a myocardial infarction in his late 30s or early 40s General Exam - General Exam Comments Initial Comments: PE: CONSTITUTIONAL: No apparent distress, well appearing SKIN: Warm, dry, no jaundice, hives or petechiae EYES: Pupils are equally round, extraocular movements intact without nystagmus, clear conjunctiva, non-icteric sclera HENT: Normocephalic, atraumatic, moist mucus membranes, oropharynx clear without exudates NECK: , Full range of motion, normal appearance PULMONARY: Clear to auscultation without wheezes, rhonchi, or rales, normal excursion, no accessory muscle use and no stridor CARDIOVASCULAR: Regular rate, rhythm, normal S1 and S2. No appreciated murmurs, rubs or gallops. Strong DP pulses with intact distal perfusion. No lower extremity edema GASTROINTESTINAL: Soft, active bowel sounds throughout, non-tender, non- distended, no palpable masses, no rebound or guarding. No hepatosplenomegaly, - CVA TTP MUSCULOSKELETAL: Extremities have no gross deformity, no edema, redness, or swelling. No calf swelling NEUROLOGIC:_a/o x 3, GCS 15, normal mentation and speech. Moves all extremities x 4 without motor or sensory deficit PSYCHIATRIC:_normal mood and affect, thought process is clear and linear Limitations: no limitations Course Vital Signs 04/17/24 22:12 Temperature 98.2 F Pulse Rate 91 Respiratory 16 Rate Blood Pressure 132/93 O2 Sat by Pulse 98 Oximetry EKG Findings - EKG Comments: EKG Findings:: Sinus rhythm with respiratory variation, rate 65 beats minute RI interval 126 ms QT/QTc 398/4 9 ms, normal axis, no ST elevations or depressions, no delta waves or Brugada pattern Medical Decision Making - Medical Decision Making Was pt. sent in by a medical professional or institution (JAMES Yap, MONEY ROOM TELLER, urgent care, hospital, or snf...) When possible be specific @ -[No] Did you speak to anyone other than the patient for history (EMS, parent, family, police, friend...)? What history was obtained from this source @ -[No] Did you review nursing and triage notes (agree or disagree)? Why? @ -[I reviewed nursing and triage notes] Were old charts reviewed (outside hosp., previous admission, EMS record, old EKG , old radiological studies, urgent care reports/EKG's, snf records)? Report findings @ -[Medical records reviewed] had an ultrasound performed on 02/19/2024 that significant for a small anechoic intrauterine cystic structure without evidence of yolk sac or pole, was thought represent an early gestational sac with positive hCG, ectopic and abnormality of intrauterine were not ruled out based on that alone, a follow-up ultrasound in 7 to 10 days was recommended, there is no follow-up ultrasound in our records. Differential Diagnosis (chest pain, altered mental status, abdominal pain women, abdominal pain men, vaginal bleeding, weakness, fever, dyspnea, syncope, headache, dizziness, GI bleed, back pain, seizure, CVA, palpatations, mental health, musculoskeletal)? Differential diagnosis remains broad however top considerations include ovarian torsion, PID, kidney stone, placenta abruption, ruptured ectopic , UTI, placenta previa, threatened , N/V in , Hyperemsis gravidarum, viral infection, this is not meant to be an all-inclusive list EKG interpreted by me (3pts min.). @ -[As above] X-rays interpreted by me (1pt min.). @ -[None done] CT interpreted by me (1pt min.). @ -[None done] U/S interpreted by me (1pt. min.). @ -[None done] What testing was considered but not performed or refused? (CT, X-rays, U/S, labs)? Why? @ -[None] What meds were considered but not given or refused? Why? @ -[None] Did you discuss the management of the patient with other professionals (professionals i.e. , PA, MONEY ROOM TELLER, lab, RT, psych nurse, social media marketer, layer out plate glass, teacher, chemical instrumentation officer, pillowcase cutter)? Give summary @ -[No] Was smoking cessation discussed for >3mins.? @ -[No] Was critical care preformed (if so, how long)? @ -[No] Were there social determinants of health that impacted care today? How? (Homelessness, low income, unemployed, alcoholism, drug addiction, transportation, low edu. Level, literacy, decrease access to med. care, halfway, rehab)? @ -[No] Was there de-escalation of care discussed even if they declined (Discuss DNR or withdrawal of care, Hospice)? @ -[No] What co-morbidities impacted this encounter? (DM, HTN, Smoking, COPD, CAD, Cancer, CVA, ARF, Chemo, Hep., AIDS, mental health diagnosis, sleep apnea, mor bid obesity)? @ -[None] Was patient admitted / discharged? Hospital course, mention meds given and r oute, prescriptions, significant lab abnormalities, going to OR and other pertinent info. @ -[hospital course] patient is a pleasant seven 29-year-old female presenting today for lower abdominal cramping, lightheadedness nausea and vomiting that started a few hours prior to arrival. Vital signs within acceptable limits on arrival. On my assessment patient is comfortable and well-appearing in no acute distress. Physical exam as noted above. Discussed with patient plan for IV fluids, antinausea medications, Tylenol, OB ultrasound. Patient agreed plan of care. Of note patient had an ultrasound done on 02/19/2024 as noted above, she states she has had a follow-up ultrasound since then that did confirm an intrauterine . On reassessment patient endorsed improvement of symptoms. Ultrasound did not show any acute or emergent process. Undiagnosed new problem with uncertain prognosis? @ -[No] Drug Therapy requiring intensive monitoring for toxicity (Heparin, Nitro, Insulin, Cardizem)? @ -[No] Were any procedures done? @ -[No] Diagnosis/symptom? @ -[default] Acute, or Chronic, or Acute on Chronic? @ -[default] Uncomplicated (without systemic symptoms) or Complicated (systemic symptoms)? @ -[default] Side effects of treatment? @ -[No] Exacerbation, Progression, or Severe Exacerbation? @ -[No] Poses a threat to life or bodily function? How? (Chest pain, [place], PR, pneumonia, PE, COPD, DKA, ARF, appy, cholecystitis, CVA, Diverticulitis, Homicidal, Suicidal, threat to staff... and all critical care pts) @ -[No] - Lab Data Result diagrams: 04/17/24 22:31 04/17/24 22:31 Lab Results 04/17/24 04/17/24 04/17/24 Range/Units 22:31 22:31 22:35 WBC 13.6 H (3.8-10.6) k/uL RBC 3.68 L (3.80-5.40) m/uL Hgb 11.8 (11.4-16.0) gm/dL Hct 34.0 (34.0-46.0) % MCV 92.4 D (80.0-100.0) fL MCH 32.0 (25.0-35.0) pg MCHC 34.6 (31.0-37.0) g/dL RDW 12.8 (11.5-15.5) % Plt Count 344 (150-450) k/uL MPV 6.5 Neutrophils % 76 % Lymphocytes % 16 % Monocytes % 5 % Eosinophils % 1 % Basophils % 0 % Neutrophils # 10.3 H (1.3-7.7) k/uL Lymphocytes # 2.2 (1.0-4.8) k/uL Monocytes # 0.7 (0-1.0) k/uL Eosinophils # 0.1 (0-0.7) k/uL Basophils # 0.1 (0-0.2) k/uL PT 10.2 (10.0-12.5) sec INR 0.9 (<1.2) APTT 22.2 (22.0-30.0) sec Sodium 132 L (137-145) mmol/L Potassium 4.0 (3.5-5.1) mmol/L Chloride 103 (98-107) mmol/L Carbon Dioxide 18 L (22-30) mmol/L Anion Gap 11 mmol/L BUN 12 (7-17) mg/dL Creatinine 0.50 L (0.52-1.04) mg/dL Est GFR (CKD-EPI)AfAm >90 (>60 ml/min/1.73 sqM) Est GFR (CKD-EPI)NonAf >90 (>60 ml/min/1.73 sqM) Glucose 88 (74-99) mg/dL Calcium 9.5 (8.4-10.2) mg/dL Total Bilirubin 1.0 (0.2-1.3) mg/dL AST 16 (14-36) U/L ALT 11 (4-34) U/L Alkaline Phosphatase 84 (38-126) U/L Total Protein 7.0 (6.3-8.2) g/dL Albumin 4.2 (3.5-5.0) g/dL Lipase 59 (23-300) U/L Urine Color Urine Appearance (Clear) Urine pH (5.0-8.0) Ur Specific [place] (1.001-1.035) Urine Protein (Negative) Urine Glucose (UA) (Negative) Urine Ketones (Negative) Urine Blood (Negative) Urine Nitrite (Negative) Urine Bilirubin (Negative) Urine Urobilinogen (<2.0) mg/dL Ur Leukocyte Esterase (Negative) Influenza Type A (PCR) (Not Detectd) Influenza Type B (PCR) (Not Detectd) RSV (PCR) (Not Detectd) SARS-CoV-2 (PCR) (Not Detectd) Blood Type Blood Type Recheck Bld Type Recheck Status Antibody Screen Spec Expiration Date 04/17/24 04/17/24 04/17/24 Range/Units 22:35 22:54 23:04 WBC (3.8-10.6) k/uL RBC (3.80-5.40) m/uL Hgb (11.4-16.0) gm/dL Hct (34.0-46.0) % MCV (80.0-100.0) fL MCH (25.0-35.0) pg MCHC (31.0-37.0) g/dL RDW (11.5-15.5) % Plt Count (150-450) k/uL MPV Neutrophils % % Lymphocytes % % Monocytes % % Eosinophils % % Basophils % % Neutrophils # (1.3-7.7) k/uL Lymphocytes # (1.0-4.8) k/uL Monocytes # (0-1.0) k/uL Eosinophils # (0-0.7) k/uL Basophils # (0-0.2) k/uL PT (10.0-12.5) sec INR (<1.2) APTT (22.0-30.0) sec Sodium (137-145) mmol/L Potassium (3.5-5.1) mmol/L Chloride (98-107) mmol/L Carbon Dioxide (22-30) mmol/L Anion Gap mmol/L BUN (7-17) mg/dL Creatinine (0.52-1.04) mg/dL Est GFR (CKD-EPI)AfAm (>60 ml/min/1.73 sqM) Est GFR (CKD-EPI)NonAf (>60 ml/min/1.73 sqM) Glucose (74-99) mg/dL Calcium (8.4-10.2) mg/dL Total Bilirubin (0.2-1.3) mg/dL AST (14-36) U/L ALT (4-34) U/L Alkaline Phosphatase (38-126) U/L Total Protein (6.3-8.2) g/dL Albumin (3.5-5.0) g/dL Lipase (23-300) U/L Urine Color Light Yellow Urine Appearance Clear (Clear) Urine pH 7.0 (5.0-8.0) Ur Specific [place] 1.022 (1.001-1.035) Urine Protein Trace H (Negative) Urine Glucose (UA) Negative (Negative) Urine Ketones Negative (Negative) Urine Blood Negative (Negative) Urine Nitrite Negative (Negative) Urine Bilirubin Negative (Negative) Urine Urobilinogen <2.0 (<2.0) mg/dL Ur Leukocyte Esterase Negative (Negative) Influenza Type A (PCR) Not Detected (Not Detectd) Influenza Type B (PCR) Not Detected (Not Detectd) RSV (PCR) Not Detected (Not Detectd) SARS-CoV-2 (PCR) Not Detected (Not Detectd) Blood Type O Negative Blood Type Recheck O Neg Bld Type Recheck Status No Antibody Screen POSITIVE Spec Expiration Date 04/20/20242334 Disposition Clinical Impression: Nausea and vomiting during Disposition: HOME SELF-CARE Condition: Stable Instructions (If sedation given, give patient instructions): Acute Nausea and Vomiting (ED) Additional Instructions: Every disease is a spectrum and a small chance still exists that a serious condition could develop, for this reason, please monitor yourself closely for new, changing or worsening symptoms, symptoms that persist beyond 48 hours, failure of your symptoms resolved in 48 hours, severe abdominal pain, vaginal bleeding or discharge, episode of passing out, chest pain or difficulty in breathing fever, inability to tolerate/keep down fluids or your medications, inability to follow up with outpatient providers as instructed and should you ex perience these symptoms or should you have any further concerns for your wellbeing please return to the ED or call 911 immediately. Please drink plenty of fluids and remain on pelvic rest (no sexual intercourse, douching or any other objects inserted into the vagina) until seen by your gynecology teacher. PLEASE call your primary care physician as soon as possible to arrange / discuss plan for followup appointment. Appointment in the next 1-3 days is strongly encouraged if possible. PLEASE let us know here before you leave if there is anything further we can do to be of any assistance. Take care and feel Better! Is patient prescribed a controlled substance at d/c from ED?: No Referrals: None,Stated [Primary Care Provider] - 1-2 days Susan Vigil MD [STAFF PHYSICIAN] - 1-2 days
[2024-04-17] MEDS: diphenhydrAMINE 50 MG/ML 1 ML VIAL IVP STA (22:44)
[2024-04-17] MEDS: ACETAMINOPHEN TAB 500 MG TAB PO STA (22:45)
[2024-04-17] MEDS: ONDANSETRON 4 MG/2 ML VIAL IVP STA (22:47)
[2024-04-17] MEDS: METOCLOPRAMIDE 5 MG/ML 2 ML VIAL IVP STA (22:48)
[2024-04-17] MEDS: FAMOTIDINE 20 MG/2 ML VIAL IV STA (22:49)
[2024-04-17] MEDS: PYRIDOXINE 100 MG/ML 1 ML VIAL IVP STA (22:51)
[2024-04-17 22:52] LABS: Basophils # (A) 0.1 k/uL (0-0.2); Basophils % (A) 0 %; Eosinophils # (A) 0.1 k/uL (0-0.7); Eosinophils % (A) 1 %; HGB 11.8 gm/dL (11.4-16.0); Lymphocytes # (A) 2.2 k/uL (1.0-4.8); Lymphocytes % (A) 16 %; MCHC 34.6 g/dL (31.0-37.0); Mean Platelet Volume 6.5; Monocytes # (A) 0.7 k/uL (0-1.0); Monocytes % (A) 5 %; Neutrophils # (A) 10.3 k/uL (1.3-7.7); Neutrophils % (A) 76 %; Platelet Count 344 k/uL (150-450); RBC 3.68 m/uL (3.80-5.40); RDW 12.8 % (11.5-15.5); WBC 13.6 k/uL (3.8-10.6)
[2024-04-17 22:59] LABS: MCV 92.4 fL (80.0-100.0)
[2024-04-17] MEDS: DEXTROSE 5%-LACTATED RINGERS 1,000 ML IV SCH (23:02)
[2024-04-17 23:13] LABS: INR 0.9 (<1.2); Partial Thromboplastin Time 22.2 sec (22.0-30.0); Prothrombin Time 10.2 sec (10.0-12.5)
[2024-04-17 23:15] LABS: African American GFR (CKD) >90 (>60 ml/min/1.73 sqM); Anion Gap 11 mmol/L; Blood Urea Nitrogen 12 mg/dL (7-17); Carbon Dioxide 18 mmol/L (22-30); Chloride 103 mmol/L (98-107); Glucose 88 mg/dL (74-99); Sodium 132 mmol/L (137-145)
[2024-04-17 23:15] LABS: Appearance,Urine Clear (Clear); Bilirubin,Urine Negative (Negative); Blood,Urine Negative (Negative); Color,Urine Light Yellow; Glucose,Urine (UA) Negative (Negative); Ketones,Urine Negative (Negative); Leukocyte Esterase,Urine Negative (Negative); Nitrite,Urine Negative (Negative); Protein,Urine Trace (Negative); Specific Gravity,Urine 1.022 (1.001-1.035); Urobilinogen,Urine <2.0 mg/dL (<2.0)
[2024-04-17 23:16] LABS: ALT 11 U/L (4-34); AST 16 U/L (14-36); Albumin 4.2 g/dL (3.5-5.0); Alkaline Phosphatase 84 U/L (38-126); Calcium 9.5 mg/dL (8.4-10.2); Lipase 59 U/L (23-300); Non-African American GFR(CKD) >90 (>60 ml/min/1.73 sqM)
[2024-04-17 23:40] LABS: Influenza A Not Detected (Not Detectd); Influenza B Not Detected (Not Detectd); RSV Not Detected (Not Detectd)
--- NOTE | 2024-04-18 01:51 | US ---
EXAM: US Second or Third Trimester , Transabdominal CLINICAL HISTORY: US Reason: N/V/ lightheadedness, low ab. Cramping, 15W TECHNIQUE: Real-time transabdominal obstetrical ultrasound of the maternal pelvis and a second or third trimester with image documentation. COMPARISON: No relevant prior studies available. FINDINGS: Fetus: Heart rate: heart rate 169 bpm. Presentation: There is a single intrauterine fetus in a breech orientation. Placenta: The placenta is posterior fundal and grade 1. No previa or abruption. Amniotic fluid: Unremarkable. Anatomy: Intracranial/face anatomy not seen. Spinal anatomy not seen. Extremities not seen. Four-chamber heart not seen. Umbilical cord not seen. BIOMETRICS Gestational age: The estimated gestational age is 14 weeks 5 days. BISHNU: The estimated date delivery is October 11, 2024. EFW: Estimated weight 97 g 14 g. BPD: Biparietal diameter 2.68 cm consistent with 14 weeks 6 days. HC: Head circumference 10.03 cm consistent with 14 weeks 5 days. AC: Abdominal circumference 8.06 cm consistent with 14 weeks 4 days. FL: Femur length 1.45 cm consistent with 14 weeks 2 days. MATERNAL: Uterus: There is a 2.9 x 2.4 x 2.3 cm fibroid extending off the anterior uterus. Cervix: Cervix measures 3.4 cm and is closed. Free fluid: No free fluid in the pelvis. IMPRESSION: 1. The estimated gestational age is 14 weeks 5 days. 2. The estimated date delivery is October 11, 2024.
[2024-04-18 02:07] VITALS: BP 127/68; PULSE 69
== END 2024-04-18 02:07 | disposition home or self-care (01) ==
LOC: EC 22:09
DX: O21.9 Vomiting of pregnancy, unspecified (principal); O99.332 Smoking (tobacco) complicating pregnancy, second trimester; F17.290 Nicotine dependence, other tobacco product, uncomplicated; Z3A.15 15 weeks gestation of pregnancy
CPT/HCPCS: 36415; 93005; 86900; 86901; 80053; 83690; 85025; 85610; 85730; 86850; 81003; 87636; 76805; 99285; 96374; 96375 ×4; 96361; J1200; J3415; J2765; J2405; J3490; 86870; 86880

== ENCOUNTER 2024-09-29 05:41 | Inpatient (IN) | payer BC, OTHER ==
[2024-09-29] MEDS ORDERED: OXYTOCIN 10 UNIT/ML 1 ML VIAL IM PRN (06:12)
[2024-09-29] MEDS ORDERED: TERBUTALINE 1 MG/ML VIAL SQ PRN (06:12)
[2024-09-29] MEDS ORDERED: TRANEXAMIC 1,000 MG/100ML-NACL 1,000 MG in EMPTY BAG 1 BAG IV PRN (06:12)
[2024-09-29] MEDS ORDERED: METHYLERGONOVINE 0.2 MG/ML 1 ML AMP IM PRN (06:12)
[2024-09-29] MEDS ORDERED: CARBOPROST TROMETHAMINE 250 MCG/ML 1 ML AMP IM PRN (06:12)
[2024-09-29] MEDS ORDERED: LIDOCAINE 0.5% (PF) 5 MG/ML (50 ML SDV) SQ PRN (06:12)
[2024-09-29 06:19] VITALS: RESP 16
[2024-09-29 06:29] LABS: Basophils # (A) 0.03 10*3/uL (0.00-0.10); Basophils % (A) 0.3 %; Eosinophils # (A) 0.03 10*3/uL (0.04-0.35); Eosinophils % (A) 0.3 %; HCT 28.5 % (37.2-46.3); HGB 10.0 g/dL (12.0-15.0); Lymphocytes # (A) 1.52 10*3/uL (0.90-5.00); Lymphocytes % (A) 14.8 %; MCH 33.1 pg (27.0-32.0); MCHC 35.1 g/dL (32.0-37.0); MCV 94.4 fL (80.0-97.0); Monocytes # (A) 0.77 10*3/uL (0.20-1.00); Monocytes % (A) 7.5 %; Neutrophils # (A) 7.87 10*3/uL (1.80-7.70); Neutrophils % (A) 76.7 %; Platelet Count 219 10*3/uL (140-440); RBC 3.02 10*6/uL (4.10-5.20); RDW 14.3 % (11.5-14.5); WBC 10.26 10*3/uL (4.50-10.00)
[2024-09-29] MEDS: LACTATED RINGERS 1,000 ML IV SCH (06:36)
[2024-09-29] MEDS: OXYTOCIN 30 UNITS/500 ML NS 30 UNIT in SALINE 1 500ML.BAG IV SCH (06:37)
[2024-09-29] MEDS ORDERED: BUTORPHANOL 1 MG/ML 1 ML VIAL IV PRN (08:47)
--- NOTE | 2024-09-29 08:51 | P.HPOB ---
History of Present Illness H&P Date: 09/29/24 Chief Complaint: 38+ weeks, IUGR, induction The patient is a 29-year-old 2 para 1-0-0-1 admitted at 38+ weeks as established by last menstrual period and confirmed by 11-week ultrasound. She is admitted for induction of labor secondary to the diagnosis of intrauterine growth restriction. She has had reassuring twice weekly testing since 32 weeks and all signs are reassuring on labor and delivery with a category 1 heart rate tracing. She is also Rh- and received RhoGAM at 28 weeks. She was discovered at her anatomy scan to have an intracardiac mass or structure which was evaluated by maternal- medicine and thought to be of no concern w ith no change in management. She additionally carries a history of HSV for which she has been on prophylaxis since 36 weeks with Valtrex. Group B strep status is negative. Obstetrical history: 2 para 1-0-0-1 with 1 term vaginal delivery without complications. Current statistics are listed in history of present illness. EDC of 10/10/2024 was established by last menstrual period and confirmed by 11-week ultrasound. Laboratory workup demonstrates a blood type of O- with a negative antibody screen. Rubella status is immune. The remainder of the laboratory workup is within normal limits. 1 hour Glucola was normal and group B strep status is negative. Gynecologic history: Unremarkable with no history of any infections to include STDs aside from her history of HSV for which she has had no lesions during the and is currently on prophylaxis. Review of Systems Review of systems is confined to history of present illness. Past Medical History Past Medical History: No Reported History History of Any Multi-Drug Resistant Organisms: None Reported Past Surgical History: No Surgical Hx Reported Past Anesthesia/Blood Transfusion Reactions: No Reported Reaction Past Psychological History: Anxiety, Depression, PTSD Smoking Status: Former smoker, Vaper Past Alcohol Use History: None Reported Past Drug Use History: None Reported - Past Family History Father Family Medical History: Myocardial Infarction ([place]) Additional Family Medical History / Comment(s): Father from a myocardial infarction in his late 30s or early 40s Medications and Allergies Home Medications Medication Instructions Recorded Confirmed Type Vit No.179/Iron/Folic 1 tab PO DAILY 09/29/24 09/29/24 History [ Tablet] valACYclovir HCL [Valtrex] 1 tab PO DAILY 09/29/24 09/29/24 History Allergies Allergy/AdvReac Type Severity Reaction Status Date / Time No Known Allergies Allergy Verified 09/29/24 06:09 Exam Vital Signs Temp Pulse Resp BP Pulse Ox 09/29/24 06:09 97.4 F L 89 16 128/84 99 Intake and Output 09/28/24 09/29/24 09/29/24 22:59 06:59 14:59 Other: Weight 71.668 kg In general, this is a well-developed, well-nourished white female in no acute distress. Her heart has a regular rhythm and rate without murmur. Her lungs clear to auscultation bilaterally in all ke[place]. Her abdomen is gravid, nondistended, has normal active bowel sounds, soft, nontender, and without any palpable masses aside from the uterine fundus. Her extremities are without any cyanosis, clubbing, or edema and are nontender to palpation bilaterally. Digi ashlyn cervical examination demonstrates her cervix to be 2+ centimeters dilated, 60 to 70% effaced, with the vertex and presentation at -2 station. Artificial rupture of membranes is carried out demonstrating clear fluid. Results Result Diagrams: 09/29/24 06:15 Abnormal Lab Results - Last 24 Hours (Table) 09/29/24 Range/Units 06:15 WBC 10.26 H (4.50-10.00) 10*3/uL RBC 3.02 L (4.10-5.20) 10*6/uL Hgb 10.0 L (12.0-15.0) g/dL Hct 28.5 L (37.2-46.3) % MCH 33.1 H (27.0-32.0) pg Neutrophils # 7.87 H (1.80-7.70) 10*3/uL Eosinophils # 0.03 L (0.04-0.35) 10*3/uL Assessment and Plan (1) Intrauterine growth retardation in Current Visit: Yes Status: Acute Code(s): O36.5990 - MATERN CARE FOR OTH OR SUSP POOR FETL GRTH, UNSP TRI, UNSP SNOMED Code(s): 341042503 (2) Term Current Visit: Yes Status: Acute Code(s): Z34.90 - ENCNTR FOR SUPRVSN OF NORMAL , UNSP, UNSP TRIMESTER SNOMED Code(s): 78931261 Plan: The patient has been admitted for Pitocin induction which has been started. Artificial rupture of membranes has been carried out. She will have close maternal and surveillance and expectant management will be practiced. She is a good candidate for either IV or epidural analgesia, chart she may choose.
[2024-09-29] MEDS ORDERED: fentaNYL (PF) 50 MCG/ML 5 ML AMP ONE (09:29)
[2024-09-29] MEDS ORDERED: ROPIVACAINE 5 MG/ML 30 ML VIAL ONE (09:29)
[2024-09-29] MEDS ORDERED: SODIUM CHLORIDE 0.9% 250 ML BAG ONE (09:29)
[2024-09-29] MEDS ORDERED: HYDROCORTISONE 2.5% RECTAL CREAM 30 GM TUBE RECTAL PRN (12:52)
[2024-09-29] MEDS ORDERED: diphenhydrAMINE 25 MG CAP PO PRN (12:52)
[2024-09-29] MEDS ORDERED: LANOLIN CREAM 1 GM TUBE TOPICAL PRN (12:52)
[2024-09-29] MEDS ORDERED: diphenhydrAMINE 50 MG/ML 1 ML VIAL IVP PRN ×2 (12:52)
[2024-09-29] MEDS ORDERED: BENZOCAINE/MENTHOL SPRAY 1 GM/SPRAY AEROSOL TOPICAL PRN (12:52)
[2024-09-29] MEDS ORDERED: SIMETHICONE 80 MG CHEWABLE PO PRN (12:52)
[2024-09-29] MEDS ORDERED: ZOLPIDEM 5 MG TAB PO PRN (12:52)
--- NOTE | 2024-09-29 12:56 | P.PROBDLV ---
Vaginal Delivery Note - . Vaginal Delivery Note: Date of service/delivery: 09/29/2024 The patient is a 29-year-old 2 para 1-0-0-1 admitted at 38-3/7 weeks by good dating parameters. She is admitted for induction of labor with a diagnosis of intrauterine growth restriction. On labor and delivery, all signs are reassuring with a category 1 heart rate tracing. She is additionally Rh- and received RhoGAM at 28 weeks. testing regarding the IUGR has been reassuring twice weekly since 32 weeks. Pitocin augmentation was started first thing this morning and she then underwent artificial rupture of membranes for clear fluid. She made fairly rapid progress and actually had category 2 h eart rate tracing for the last 30 minutes almost certainly secondary to rapid dilation and descent as once she began pushing, the heart tones returned to category 1. She pushed over the course of 2 contractions to a normal spontaneous vaginal delivery of a viable 5 pound 12 ounce baby girl with Apgars of 9 at 1 minute and 9 at 5 minutes delivered in the right occiput anterior position. The placenta was delivered spontaneously, intact, grossly normal with a grossly normal three-vessel cord inserted approximately 3 cm from the margin of the placental disc. There are no significant lacerations the perineum, vagina, or cervix. Estimated blood loss for the case was approximately 50 mL. There were no complications. Both mother and infant are resting comfortably in recovery.
[2024-09-29] MEDS ORDERED: OXYTOCIN 30 UNITS/500 ML NS 30 UNIT in SALINE 1 500ML.BAG IV SCH (13:00)
[2024-09-29] MEDS: SENNOSIDES-DOCUSATE SODIUM 1 EACH TAB PO SCH (21:15)
[2024-09-29] MEDS: Rhogam IMMUNE GLOBULIN 1,500 UNIT/1 ML IM ONE (22:52)
[2024-09-29] MEDS: ACETAMINOPHEN TAB 500 MG TAB PO PRN (23:02)
[2024-09-30 06:32] LABS: Basophils # (A) 0.03 10*3/uL (0.00-0.10); Basophils % (A) 0.3 %; Eosinophils # (A) 0.06 10*3/uL (0.04-0.35); Eosinophils % (A) 0.6 %; HCT 28.5 % (37.2-46.3); HGB 9.4 g/dL (12.0-15.0); Lymphocytes # (A) 1.98 10*3/uL (0.90-5.00); Lymphocytes % (A) 19.2 %; MCH 31.8 pg (27.0-32.0); MCHC 33.0 g/dL (32.0-37.0); MCV 96.3 fL (80.0-97.0); Monocytes # (A) 1.13 10*3/uL (0.20-1.00); Monocytes % (A) 10.9 %; Neutrophils # (A) 7.09 10*3/uL (1.80-7.70); Neutrophils % (A) 68.7 %; Platelet Count 196 10*3/uL (140-440); RBC 2.96 10*6/uL (4.10-5.20); RDW 14.4 % (11.5-14.5); WBC 10.32 10*3/uL (4.50-10.00)
[2024-09-30] MEDS: IBUPROFEN 800 MG TAB PO PRN (08:26)
--- NOTE | 2024-09-30 08:40 | P.DS ---
Providers Date of admission: 09/29/24 05:41 Expected date of discharge: 09/30/24 Attending physician: Arnoldo Ring Primary care physician: Stated None Hospital Course: 29 year old now PPD#1 s/p . The patient is doing well this morning and had no acute events overnight. She has no complaints this morning. She reports minimal lochia, passing flatus, voiding without difficulty, ambulating, and eating/drinking without nausea or vomiting. doing well at bedside, nursing well. She denies chest pain, shortness of breathing, fevers, or chills overnight. She denies pain or swelling in the legs. restrictions are reviewed with the patient including pelvic rest for 6 weeks. The patient is encouraged to call the office if she experiences any heavy bleeding, foul- smelling discharge, breast complaints, or any if she has any other concerns. She will follow up in the office with Dr. Ring in 6 weeks for exam. All questions are answered. Patient Condition at Discharge: Good Plan - Discharge Summary New Discharge Prescriptions: New Acetaminophen Tab [Tylenol] 650 mg PO Q6H PRN #30 tab PRN Reason: Mild Pain (Scale 1 To 3) Docusate [Colace] 100 mg PO BID PRN #60 capsule PRN Reason: Constipation Ibuprofen [Motrin] 600 mg PO Q6HR PRN #30 tab PRN Reason: Mild Pain (Scale 1 To 3) No Action Vit No.179/Iron/Folic [ Tablet] 1 tab PO DAILY valACYclovir HCL [Valtrex] 1 tab PO DAILY Discharge Medication List Vit No.179/Iron/Folic [ Tablet] 1 tab PO DAILY 09/29/24 [History] valACYclovir HCL [Valtrex] 1 tab PO DAILY 09/29/24 [History] Acetaminophen Tab [Tylenol] 650 mg PO Q6H PRN #30 tab 09/30/24 [Rx] Docusate [Colace] 100 mg PO BID PRN #60 capsule 09/30/24 [Rx] Ibuprofen [Motrin] 600 mg PO Q6HR PRN #30 tab 09/30/24 [Rx] Follow up Appointment(s)/Referral(s): Arnoldo Ring MD [STAFF PHYSICIAN] - 11/09/24 10:45 am Activity/Diet/Wound Care/Special Instructions: Instructions 1. Do not begin any exercise program for 3 weeks. 2. Do not resume sexual relations for 6 weeks or longer if uncomfortable. 3. You may take tub baths or showers at any time. 4. You may use tampons if desired after 6 weeks. 5. Keep any areas repaired with stitches clean and dry. 6. If you are not nursing, wear a good fitting, supportive bra during the day and limit fluid intake for at least 1 week to prevent breast engorgement. 7. Call the office, , within the next week to make appointment for your 6 week checkup if it has not already been made. 8. Report any of the following occurrences to the doctor promptly: a. Heavy, excessive bleeding b. Chills, fever c. Burning or frequency of urination d. Pain or redness and breasts if nursing e. Increasing pain or swelling of vulva (stitches). In addition to the above instructions, the following additional should be followed: 1. No heavy lifting or straining (exercising) until after 6 week checkup. 2. Keep abdominal incision clean and dry: You may wear a dressing if more comfortable. 3. Make office appointment for 2 weeks after delivery date. Discharge Disposition: HOME SELF-CARE
[2024-09-30 09:40] VITALS: PULSE 80; TEMP 98.5
[2024-09-30 11:09] VITALS: BP 124/85
== END 2024-09-30 14:30 | disposition home or self-care (01) | DRG 806 ==
LOC: 4FBP 05:41
PROVIDERS: ADMIT Obstetrics & Gynecology; ATTEND Obstetrics & Gynecology
PROC: 10E0XZZ Delivery of Products of Conception, External Approach (ICD-10-PCS; principal; 2024-09-29)
PROC: 10907ZC Drainage of Amniotic Fluid, Therapeutic from Products of Conception, Via Natural or Artificial Opening (ICD-10-PCS; 2024-09-29)
DX: O36.5930 Maternal care for other known or suspected poor fetal growth, third trimester, not applicable or unspecified (principal); O98.52 Other viral diseases complicating childbirth; Z37.0 Single live birth; B00.9 Herpesviral infection, unspecified; Z3A.38 38 weeks gestation of pregnancy; Z87.891 Personal history of nicotine dependence
CPT/HCPCS: 85025; 85461; 86850; 86900; 86901